=== PATIENT | female | born 1995 | race Caucasian/White ===

== ENCOUNTER 2018-09-05 22:34 | Emergency (ER) | payer MEDICAID ==
[2018-09-05 22:39] VITALS: BP 125/73
[2018-09-05] MEDS ORDERED: DIPH/PERTUSS(ACELL)/TETANUS VAC/PF 0.5 ML SYR (>=10YO) IM ONE (23:00)
--- NOTE | 2018-09-05 23:03 | ER Document Report ---
ED General - General Chief Complaint: Laceration Stated Complaint: RIGHT GREAT TOE LACERATION Time Seen by Provider: 09/05/18 22:59 Primary Care Provider: MAKENZIE BERNAL PA-C [Emergency Provider] - 09/15/18 Mode of Arrival: Ambulatory Information source: Patient TRAVEL OUTSIDE OF THE [place] IN LAST 30 DAYS: No - HPI Patient complains to provider of: right great toe laceration Onset: Just prior to arrival Onset/Duration: Sudden Quality of pain: Sharp Severity: Moderate Pain Level: 2 Associated symptoms: None Exacerbated by: Movement, Walking Relieved by: Denies Similar symptoms previously: No Recently seen / treated by doctor: No Notes: 23-year-old female with right great toe laceration. There was a piece of broken glass stuck to her left shoe she tried to take her right foot to knock it off of there and did not realize that it was glass and therefore lacerated her right great toe. Last tetanus is unknown. 32 weeks . - Related Data Allergies/Adverse Reactions: tomato Allergy (Verified 09/05/18 22:59) topiramate [From Topamax] Allergy (Verified 09/05/18 22:59) Past Medical History - General Information source: Patient - Social History Smoking Status: Never Smoker Family History: Reviewed & Not Pertinent Review of Systems - Review of Systems Notes: Constitutional: No fevers. No chills. EENT: No eye redness. No eye pain. No ear pain. No sore throat. Cardiovascular: No chest pain. No palpitations. Respiratory: No cough. No shortness of breath. No respiratory distress. Gastrointestinal: No abdominal pain. No nausea, vomiting, or diarrhea. Genitourinary: Atraumatic. No lesions. No pain. No discharge. Musculoskeletal: Positive for right great toe laceration Skin: No rash or lesions. Lymphatic: No swollen lymph nodes. Physical Exam - Vital signs Vitals: Temp Pulse Resp BP Pulse Ox 98.2 F 91 16 125/73 100 09/05/18 22:38 09/05/18 22:38 09/05/18 22:38 09/05/18 22:38 09/05/18 22:38 - Notes Notes: General: Well-developed, well-nourished. In no acute distress. Non-toxic appearing. Cardiac: Well-perfused. Regular rate and rhythm. No murmurs, rubs, or gallops. Pulmonary: No respiratory distress. No cyanosis. Bilateral lung fiels are clear to auscultation. Abdominal: Non-distended. Non-rigid. Bowels sounds are present in all four quadrants. No guarding or rebound. HEENT: Head is atraumatic. Conjunctivae not reddened. No tearing. PERRL. EOMI. Orbits atraumatic. No periorbital swelling or erythema. Oropharynx is without erythema, swelling, or exudates. Neck: Supple. No adenopathy. No meningismus. Dermatologic: Warm with good turgor. No rash. Atraumatic. Chest: Atraumatic. No chest wall tenderness to palpation. Musculoskeletal: 2 cm laceration to medial aspect of right great toe. No active bleeding. Genitourinary: Examination deferred Neurologic: No gross neurologic deficits. Psychiatric: Normal mood. Course - Re-evaluation Re-evalutation: 09/05/18 23:21 X-ray looks negative. Will suture this toe and discharge patient shortly - Vital Signs Vital signs: Temp Pulse Resp BP Pulse Ox 98.2 F 91 16 125/73 100 09/05/18 22:38 09/05/18 22:38 09/05/18 22:38 09/05/18 22:38 09/05/18 22:38 Procedures - Laceration/Wound Repair right great toe Time completed: 23:58 Wound length (cm): 2 Wound's Depth, Shape: Linear Laceration pre-procedure: Sterile PPE donned, Sterile drapes applied, Shur-Clens applied Anesthetic type: 1% Lidocaine Volume Anesthetic (mLs): 5 Wound explored: Clean, No foreign body removed - no fb seen Wound Repaired With: Sutures Suture Size/Type: 4:0, Nylon Number of Sutures: 4 Layer Closure?: No Post-procedure wound care: Sterile dressing applied Post-procedure NV exam normal: Yes Complications: No Discharge - Discharge Clinical Impression: Toe laceration Qualifiers: Encounter type: initial encounter Toe: great toe Damage to nail status: without damage Foreign body presence: without foreign body Laterality: right Qualified Code(s): S91.111A - Laceration without foreign body of right great toe without damage to nail, initial encounter Condition: Good Disposition: HOME, SELF-CARE Instructions: Antibiotic Ointment Protection ([facility]), Laceration Care ([facility]), Soap Cleansing ([facility]), Tetanus Immunization Given ([facility]) Additional Instructions: Sutures can be removed from your right great toe in 10 days. You may have these removed with your primary care provider or you may return to the emergency department to have the sutures removed. Please see your doctor or return to the ER if you notice any signs of infection at any point of the healing process. Referrals: MAKENZIE BERNAL PA-C [Emergency Provider] - 09/15/18
[2018-09-05] MEDS ORDERED: LIDOCAINE 1% INJ-PF (10 MG/ML) 30 ML SDV INJ ONE (23:18)
--- NOTE | 2018-09-05 23:25 | RADIOLOGY REPORT (SQ) ---
CLINICAL HISTORY: laceration right great toe r/o fb COMPARISON: None. TECHNIQUE: XR FOOT 3 OR MORE VIEWS 09/05/2018 10:59 PM CDT FINDINGS: There is no fracture. Joint spaces are preserved. There is soft tissue swelling involving the first digit. IMPRESSION: No acute fracture or radiopaque foreign body.
== END 2018-09-06 00:18 | disposition home or self-care (01) ==
LOC: ER 22:34
PROC: 0HQMXZZ Repair Right Foot Skin, External Approach (ICD-10-PCS; principal; 2018-09-05)
DX: O9A.213 Injury, poisoning and certain other consequences of external causes complicating pregnancy, third trimester (principal); S91.111A Laceration without foreign body of right great toe without damage to nail, initial encounter; W25.XXXA Contact with sharp glass, initial encounter; Z3A.32 32 weeks gestation of pregnancy
CPT/HCPCS: 90471; 90715; 99282

== ENCOUNTER 2018-10-14 20:31 | Outpatient (CLI) | payer MEDICAID ==
[2018-10-14 21:08] LABS: APPEARANCE,URINE CLOUDY; BILIRUBIN,URINE NEGATIVE (NEGATIVE); COLOR,URINE YELLOW; GLUCOSE, URINE NEGATIVE (NEGATIVE); KETONES,URINE NEGATIVE (NEGATIVE); LEUKOCYTE ESTERASE,URINE MODERATE (NEGATIVE); NITRITE,URINE NEGATIVE (NEGATIVE); PROTEIN,URINE NEGATIVE (NEGATIVE); URINE SPECIFIC GRAVITY 1.004; UROBILINOGEN,URINE NEGATIVE mg/dL (<2.0)
--- NOTE | 2018-10-14 21:12 | Non Stress Test Report ---
Non Stress Test Datetime Report Generated by CPN: 10/14/2018 21:12 DEMOGRAPHIC EGA NST: 37.3 INDICATION Indication for Study: Ordered by Provider MONITORING Monitor Explained: Monitor Explained; Test Explained; Patient Verbalized Understanding Time on Monitor: 10/14/2018 20:49 Time off Monitor: 10/14/2018 21:10 NST Duration: 21 NST INTERVENTIONS NST Interventions: None Physician Notified NST: Dr. Nicole BABY A: [id number] BABY A Movement : Present Contraction Frequency : x1 Accelerations : 15X15 Decelerations : None Variability : Moderate 6-25bpm NST Review: Meets Criteria for Reactive NST NST Review and Verified By : NDoyle RN NST Results: Reactive NST REPORT Report Trigger: Send Report
[2018-10-14 21:30] LABS: URINE AMPHETAMINES SCREEN NEGATIVE; URINE BENZODIAZEPINES SCREEN NEGATIVE; URINE COCAINE SCREEN NEGATIVE; URINE MARIJUANA (THC) SCREEN NEGATIVE; URINE METHADONE SCREEN NEGATIVE; URINE PHENCYCLIDINE SCREEN NEGATIVE
[2018-10-15 11:38] LABS: URINE BARBITURATES SCREEN UNCONFIRMED POSITIVE
== END 2018-10-14 21:28 | disposition home or self-care (01) ==
LOC: LC 20:31
PROVIDERS: ATTEND Obstetrics & Gynecology Gynecology
PROC: 4A1HXCZ Monitoring of Products of Conception, Cardiac Rate, External Approach (ICD-10-PCS; principal; 2018-10-14)
DX: O47.1 False labor at or after 37 completed weeks of gestation (principal); Z3A.37 37 weeks gestation of pregnancy
CPT/HCPCS: 59025; 80307; 81005

== ENCOUNTER 2018-11-04 09:37 | Inpatient (IN) | payer MEDICAID ==
[2018-11-04] MEDS ORDERED: OXYTOCIN 10 UNIT/ML VIAL ONE (10:11)
[2018-11-04] MEDS ORDERED: MISOPROSTOL 0.2 MG TABLET ONE (10:11)
[2018-11-04] MEDS ORDERED: LIDOCAINE 1% INJ-PF (10 MG/ML) 30 ML SDV ONE (10:11)
[2018-11-04] MEDS ORDERED: OXYTOCIN/NORMAL SALINE 20 UNIT/1,000 ML RTUINJ ONE (10:12)
[2018-11-04] MEDS: RINGERS SOLUTION,LACTATED 1,000 ML IV PRN ×3 (10:15→15:10)
[2018-11-04 10:26] LABS: APPEARANCE,URINE TURBID; BILIRUBIN,URINE NEGATIVE (NEGATIVE); COLOR,URINE YELLOW; GLUCOSE, URINE NEGATIVE (NEGATIVE); KETONES,URINE TRACE mg/dL (NEGATIVE); LEUKOCYTE ESTERASE,URINE MODERATE (NEGATIVE); NITRITE,URINE NEGATIVE (NEGATIVE); PROTEIN,URINE 30 mg/dL (NEGATIVE); URINE SPECIFIC GRAVITY 1.012; UROBILINOGEN,URINE NEGATIVE mg/dL (<2.0)
[2018-11-04] MEDS ORDERED: OXYTOCIN/NORMAL SALINE 20 UNIT/1,000 ML RTUINJ IV PRN ×2 (10:31→18:35)
[2018-11-04 10:45] LABS: URINE AMPHETAMINES SCREEN NEGATIVE; URINE BENZODIAZEPINES SCREEN NEGATIVE; URINE COCAINE SCREEN NEGATIVE; URINE MARIJUANA (THC) SCREEN NEGATIVE; URINE METHADONE SCREEN NEGATIVE; URINE PHENCYCLIDINE SCREEN NEGATIVE
[2018-11-04 10:52] LABS: URINE BARBITURATES SCREEN UNCONFIRMED POSITIVE
--- NOTE | 2018-11-04 11:03 | Warning Signs in Babies ---
VOD Warning Signs Datetime Report Generated by [facility]: 11/04/2018 11:03 VOD#608 -Warning Signs in Babies: Viewed with Parent(s)/Family (08/30/2018 21:12:Phil Eckert RN)
--- NOTE | 2018-11-04 11:04 | Warning Signs in Babies ---
VOD Warning Signs Datetime Report Generated by [facility]: 11/04/2018 11:04 VOD#608 -Warning Signs in Babies: Viewed with Parent(s)/Family (11/04/2018 11:02:Phil Eckert RN)
[2018-11-04 11:25] LABS: HEMATOCRIT 35.7 % (36.0-47.0); HEMOGLOBIN 11.9 g/dL (12.0-15.5); MEAN CORPUSCULAR HEMOGLOBIN 29.9 pg (27.0-33.4); MEAN CORPUSCULAR HGB CONC 33.4 g/dL (32.0-36.0); MEAN CORPUSCULAR VOLUME 89 fl (80-97); PLATELET COUNT 226 10^3/uL (150-450); WHITE BLOOD COUNT 21.1 10^3/uL (4.0-10.5)
[2018-11-04 11:45] LABS: ABSOLUTE LYMPHOCYTES# (MANUAL) 1.1 10^3/uL (0.5-4.7); ABSOLUTE MONOCYTES # (MANUAL) 1.3 10^3/uL (0.1-1.4); BASOPHILS % (MANUAL) 0 % (0-2); EOSINOPHILS % (MANUAL) 0 % (0-6); LYMPHOCYTES % (MANUAL) 5 % (13-45); MONOCYTES % (MANUAL) 6 % (3-13); SEGMENTED NEUTROPHILS % (MAN) 89 % (42-78); TOTAL CELLS COUNTED 100
[2018-11-04 11:46] LABS: ANISOCYTOSIS SLIGHT; PLATELET COMMENT ADEQUATE; POLYCHROMASIA SLIGHT; TOXIC VACUOLATION PRESENT
[2018-11-04] MEDS ORDERED: NALBUPHINE HCL INJ 10 MG/1 ML AMPULE ONE (12:30)
[2018-11-04] MEDS ORDERED: ACETAMINOPHEN 325 MG TABLET ONE (12:31)
[2018-11-04] MEDS ORDERED: ACETAMINOPHEN 325 MG TABLET PO ONE (12:37)
[2018-11-04] MEDS ORDERED: NALBUPHINE HCL INJ 10 MG/1 ML AMPULE IV ONE (12:38)
[2018-11-04] MEDS ORDERED: EPHEDRINE SULFATE INJ 50 MG/1 ML AMPULE ONE (15:03)
[2018-11-04] MEDS ORDERED: BUPIVACAINE HCL 0.25 % INJ/PF (2.5 MG/1 ML) 30 ML VIAL ONE (15:04)
[2018-11-04] MEDS ORDERED: FENTANYL/BUPIVACAINE/NS/PF 300 MCG/150 ML RTUINJ EPI ONE (15:04)
--- NOTE | 2018-11-04 18:32 | Admission Physical ---
Datetime Report Generated by CPN: 11/04/2018 18:32 CURRENT ADMISSION Chief Complaint: Uterine Contractions Admit Impression : Term, Intrauterine Admit Plan: Admit to Unit; Initiate Labor Protocol ALLERGIES Medication Allergies: Yes Medication Allergies: topiramate (10/14/2018); tomato (10/14/2018) Latex: Unknown Food Allergies: tomato OBSTETRICAL HISTORY EDC: 11/01/2018 00:00 : 1 Para: 0 Term: 0 : 0 SAB: 0 IAB: 0 Livin Gestational Diabetes: No Rh Sensitization: No Incompetent Cervix: No SANDRA: No Infertility: No ART Treatment: No Uterine Anomaly: No IUGR: No Hx Previous C/S: No Macrosomia: No Hx Loss/Stillborn: No PIH: No Hx : No Placenta Previa/Abruption: No Depression/PP Depression: No PTL/PROM: No Post Hemorrhage: No Obstetrical History Comments: G1: current SEE RECORDS Alcohol: No Marijuana : No Cocaine: No Other Illicit Drugs: No Cigarettes: Current Everyday Smoker. 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 Heart Disease: No Hosp/Surgery: No Autoimmune Disorder: No Anesthetic Complications: No Kidney Disease: No Abnormal Pap Smear: No Neuro/Epilepsy: No Psychiatric Disorders: No Other Medical Diseases: No Hepatitis/Liver Disease: No Significant Family History: No Varicosities/Phlebitis: No Trauma/Violence : No Thyroid Dysfunction: No INFECTIOUS HISTORY Gonorrhea: No Genital Herpes: No Chlamydia: Yes Tuberculosis: No Syphilis: No Hepatitis: No HIV/AIDS Exposure: No Rash or Viral Illness: No HPV: No Infectious History Comments: chlamydia-LIZBETH neg 04/22/18 PHYSICAL EXAM General: Normal HEENT: Normal Neurologic: Normal Thyroid: Normal Heart: Normal Lungs: Normal Breast: Deferred Back: Normal Abdomen: Normal Genitourinary Exam: Normal Extremities: Normal DTRs: Normal Pelvic Type: Adequate FETUS A EGA: 40.3 PLANS FOR LABOR AND DELIVERY Labor and Delivery: None Pain Management: Epidural Feeding Preference: Formula Benefit of Breast Feed Discussed: Yes Circumcision: Yes INFORMED CONSENT Signature: with User ID: [email or web address]
[2018-11-04] MEDS ORDERED: PSEUDOEPHEDRINE HCL 30 MG TABLET PO PRN (18:35)
[2018-11-04] MEDS ORDERED: PROMETHAZINE HCL 25 MG SUPP.RECT PR PRN (18:35)
[2018-11-04] MEDS ORDERED: DIBUCAINE 1% OINTMENT 56 GM TP PRN (18:35)
[2018-11-04] MEDS ORDERED: ZOLPIDEM TARTRATE 5 MG TABLET PO PRN (18:35)
[2018-11-04] MEDS ORDERED: NA PHOS,M-B/NA PHOS,DI-BA (ADULT) 133 ML ENEMA PR PRN (18:35)
[2018-11-04] MEDS ORDERED: GLYCERIN/WITCH HAZEL LEAF 1 EACH MED..WIPE TP PRN (18:35)
[2018-11-04] MEDS ORDERED: ACETAMINOPHEN 650 MG SUPP.RECT PR PRN (18:35)
[2018-11-04] MEDS ORDERED: MEASLES,MUMPS&RUBELLA VACC/PF 0.5 ML VIAL SUBCUT PRN (18:35)
[2018-11-04] MEDS ORDERED: PROMETHAZINE HCL INJ 25 MG/1 ML VIAL IV PRN (18:35)
[2018-11-04] MEDS ORDERED: PROMETHAZINE HCL 25 MG TABLET PO PRN (18:35)
[2018-11-04] MEDS ORDERED: DIPH/PERTUSS(ACELL)/TETANUS VAC/PF 0.5 ML SYR (>=10YO) IM PRN (18:35)
[2018-11-04] MEDS ORDERED: BENZOCAINE/MENTHOL AEROSOL SPRAY 56 ML TOP PRN (18:35)
[2018-11-04] MEDS ORDERED: DIPHENHYDRAMINE HCL 25 MG CAPSULE PO PRN (18:35)
[2018-11-04] MEDS ORDERED: MAGNESIUM HYDROXIDE SUSP 30 ML UDCUP PO PRN (18:35)
[2018-11-04] MEDS: ACETAMINOPHEN WITH CODEINE #3 TABLET PO PRN (20:46)
[2018-11-04] MEDS: IBUPROFEN 800 MG TABLET PO SCH (22:21)
[2018-11-04] MEDS: FAMOTIDINE 20 MG TABLET PO SCH (22:21)
[2018-11-05] MEDS: IBUPROFEN 800 MG TABLET PO SCH ×3 (05:27→21:33)
[2018-11-05 07:26] LABS: HEMATOCRIT 31.3 % (36.0-47.0); HEMOGLOBIN 10.5 g/dL (12.0-15.5); MEAN CORPUSCULAR HGB CONC 33.5 g/dL (32.0-36.0); MEAN CORPUSCULAR VOLUME 90 fl (80-97); PLATELET COUNT 196 10^3/uL (150-450); RED BLOOD COUNT 3.49 10^6/uL (3.72-5.28); RED CELL DISTRIBUTION WIDTH 13.7 % (11.5-14.0); WHITE BLOOD COUNT 21.3 10^3/uL (4.0-10.5)
[2018-11-05] MEDS: PRENATAL VITAMIN W DHA CAPSULE PO SCH (09:16)
[2018-11-05] MEDS: FAMOTIDINE 20 MG TABLET PO SCH ×2 (09:16→21:34)
[2018-11-05] MEDS: FERROUS SULFATE 325 MG TABLET PO SCH ×2 (09:16→18:24)
[2018-11-05] MEDS: SENNOSIDES/DOCUSATE 8.6-50 MG 1 EACH TABLET PO SCH (09:16)
[2018-11-05] MEDS: DOCUSATE SODIUM 100 MG CAPSULE PO SCH ×2 (09:16→18:24)
[2018-11-05] MEDS: ACETAMINOPHEN WITH CODEINE #3 TABLET PO PRN ×2 (09:27→20:45)
--- NOTE | 2018-11-05 12:48 | PDOC PROGRESS REPORT ---
Subjective-OB Progress Note for:: 11/05/18 Subjective: Pt doing well, no concerns. She reports light bleeding, reg diet and voiding without difficulty. Physical Exam (OB) Vital Signs: Temp Pulse Resp BP Pulse Ox 97.7 F 71 16 101/51 L 100 11/05/18 07:42 11/05/18 07:42 11/05/18 07:42 11/05/18 07:42 11/05/18 07:42 Intake & Output 11/04/18 11/05/18 11/06/18 06:59 06:59 06:59 Intake Total 614 Balance 614 Weight 81 kg - PIH/Pre-Eclampsia DTR's: 2 + Clonus: Negative Headache: Absent Epigastric Pain: No Visual Changes: No - Lochia Lochia Amount: Small 10-25 ml Lochia Color: Rubra/Red - Abdomen Description: Soft, Round Hernia Present: No Fundal Description: Firm, Midline Fundal Height: u/u - u/2 Objective-Diagnostic Laboratory: 11/05/18 06:33 11/05/18 06:33 WBC 21.3 H RBC 3.49 L Hgb 10.5 L Hct 31.3 L MCV 90 MCH 30.0 MCHC 33.5 RDW 13.7 Plt Count 196 Assessment and Plan(PN) - Assessment and Plan (1) Vaginal delivery Is this a current diagnosis for this admission?: Yes (2) Obstetric vaginal laceration with first degree perineal laceration Is this a current diagnosis for this admission?: Yes - Time Spent with Patient Time with patient: Less than 15 minutes Medications reviewed and adjusted accordingly: Yes - Disposition Anticipated Discharge: Home Within: within 24 hours
[2018-11-06] MEDS: ACETAMINOPHEN WITH CODEINE #3 TABLET PO PRN (03:58)
[2018-11-06 06:42] LABS: ABSOLUTE EOSINOPHILS # (AUTO) 0.2 10^3/uL (0.0-0.6); ABSOLUTE LYMPHOCYTES (AUTO) 2.1 10^3/uL (0.5-4.7); ABSOLUTE MONOCYTES (AUTO) 1.2 10^3/uL (0.1-1.4); ABSOLUTE NEUT (AUTO) 14.7 10^3/uL (1.7-8.2); BASOPHILS % (AUTO) 0.2 % (0-2); EOSINOPHILS % (AUTO) 1.3 % (0-6); HEMATOCRIT 31.2 % (36.0-47.0); HEMOGLOBIN 10.5 g/dL (12.0-15.5); LYMPHOCYTES % (AUTO) 11.3 % (13-45); MEAN CORPUSCULAR HEMOGLOBIN 30.3 pg (27.0-33.4); MEAN CORPUSCULAR HGB CONC 33.6 g/dL (32.0-36.0); MEAN CORPUSCULAR VOLUME 90 fl (80-97); MONOCYTES % (AUTO) 6.5 % (3-13); PLATELET COUNT 200 10^3/uL (150-450); RED BLOOD COUNT 3.47 10^6/uL (3.72-5.28); RED CELL DISTRIBUTION WIDTH 13.8 % (11.5-14.0); SEGMENTED NEUTROPHILS % (AUTO) 80.7 % (42-78); TOTAL CELLS COUNTED % (AUTO) 100 %; WHITE BLOOD COUNT 18.2 10^3/uL (4.0-10.5)
[2018-11-06] MEDS: IBUPROFEN 800 MG TABLET PO SCH ×2 (06:50→14:44)
[2018-11-06 07:54] VITALS: BP 123/66
--- NOTE | 2018-11-06 10:46 | PDOC DISCHARGE SUMMARY ---
Final Diagnosis Discharge Date: 11/06/18 - Final Diagnosis (1) Vaginal delivery Is this a current diagnosis for this admission?: Yes (2) Obstetric vaginal laceration with first degree perineal laceration Is this a current diagnosis for this admission?: Yes Discharge Data - Discharge Medication Home Medications: Doxylamine Succinate/Vit B6 [Diclegis Dr 10-10 mg Tablet] 1 tab PO DAILY 08/30/18 No122/Iron/Folic Acid [ Multi Tablet] 1 tab PO DAILY 08/30/18 Butalb/Acetaminophen/Caffeine [Fioricet (50-325-40 mg) Tablet] 1 tab PO DAILY 10/14/18 Reason(s) for Admission: Onset of Labor Procedures: NST Intrapartum Procedure(s): Spontaneous Vaginal Delivery Complication(s): Laceration-Perineal Laceration-Degree: 1st - Diagnosis Test Laboratory: Temp Pulse Resp BP Pulse Ox 97.8 F 59 L 18 123/66 97 11/06/18 10:16 11/06/18 10:16 11/06/18 10:16 11/06/18 07:34 11/06/18 10:16 11/04/18 11/04/18 11/05/18 09:42 10:38 06:33 RBC 4.00 3.49 L Hgb 11.9 L 10.5 L Hct 35.7 L 31.3 L Urine Opiates Screen NEGATIVE 11/06/18 06:14 RBC 3.47 L Hgb 10.5 L Hct 31.2 L Urine Opiates Screen - Discharge information/Instructions Discharge Activity: Balance Activity w/Rest, Pelvic Rest Discharge Diet: Regular Disposition: HOME, SELF-CARE Follow up with: [facility] in: 4, Weeks
[2018-11-06] MEDS: FERROUS SULFATE 325 MG TABLET PO SCH (10:50)
[2018-11-06] MEDS: SENNOSIDES/DOCUSATE 8.6-50 MG 1 EACH TABLET PO SCH (10:50)
[2018-11-06] MEDS: DOCUSATE SODIUM 100 MG CAPSULE PO SCH (10:50)
[2018-11-06] MEDS: PRENATAL VITAMIN W DHA CAPSULE PO SCH (10:50)
[2018-11-06] MEDS: FAMOTIDINE 20 MG TABLET PO SCH (10:50)
--- NOTE | 2018-11-08 15:26 | Delivery Summary ---
Del Sum A-C Datetime Report Generated by CPN: 11/08/2018 15:25 DELIVERY PERSONNEL DELIVERY PERSONNEL: [id number] Delivery Doctor:: Neel Nicole MD Labor and Delivery Nurse:: Phil Eckert RNcement block maker Nurse:: Candida Rhodes RN Nursery Nurse:: Sarah Correa RN Brush Stainer/KITCHENWHERE MAKER: Zahraa Arevalo, BREAD WRAPPER OPERATOR MATERNAL INFORMATION Delivery Anesthesia: Epidural Medications After Delivery: Pitocin Bolus-Please Comment Meds After Delivery Comment: Pitocin 20 units in 1 L NS bolusing per order Estimated Blood Loss (ml): 100 Delivery QBL: 100 Maternal Complications: None LABOR SUMMARY EDC: 11/01/2018 00:00 No. Babies in Womb: 1 Attempted: No Labor Anesthesia: Epidural LABOR INFORMATION Reason for Induction: Not Applicable Onset of Labor: 11/04/2018 14:46 Complete Dilatation: 11/04/2018 17:05 Oxytocin: Augmentation Group B Beta Strep: negative Antibiotics # of Doses: 0 Antibiotics Time of Last Dose: n/a Name of Antibiotic Given: n/a Steroids Given: None Reason Steroids Not Administered: Not Applicable MEMBRANES Membranes Rupture Method: Spontaneous Rupture of Membranes: 11/04/2018 09:00 Length of Rupture (hr): 9.33 Amniotic Fluid Color: Clear Amniotic Fluid Amount: Small Amniotic Fluid Odor: Normal STAGES OF LABOR Stage 1 hr: 2 Stage 1 min: 19 Stage 2 hr: 1 Stage 2 min: 15 Stage 3 hr: 0 Stage 3 min: 3 Total Time in Labor hr: 3 Total Time in Labor min: 37 VAGINAL DELIVERY Episiotomy: None Laceration #1: Vaginal Laceration Extension #1: First Degree Laceration Repair: Yes Laceration Repair: Yes Laceration Repair Note: 2-0 vicryl Sponge Count Correct: Yes Sharps Count Correct: Yes CSECTION DELIVERY Primary Indication: N/A Secondary Indication: N/A CSection Incidence: N/A Labor: N/A Elective: N/A CSection Incision: N/A BABY A INFORMATION Delivery Date/Time: 11/04/2018 18:20 Method of Delivery: Vaginal Born in Route : No : N/A Forceps: N/A Vacuum Extraction: Successful Shoulder Dystocia : No ASSISTED DELIVERY BABY A Indication for Assisted Delivery: poor maternal effort Catheter Prior to Procedure: Yes Station Vacuum/Forcep Apply: 3 Vacuum Number of Pulls: 1 Vacuum Number of PopOffs: 0 Vacuum Maximum Pressure Obtained: 80 Reduce Pressure btwn Ctx: Yes Vacuum [employer] Storage Architect: [place] Total Time Vacuum Applied: 1 minute PRESENTATION/POSITION BABY A Presentation: Cephalic Cephalic Presentation: Vertex Vertex Position: Right Occipital Anterior Breech Presentation: N/A PLACENTA INFORMATION BABY A Placenta Delivery Time : 11/04/2018 18:23 Placenta Method of Delivery: Spontaneous Placenta Method of Delivery: Spontaneous Placenta Status: Delivered INFANT INFORMATION BABY A Gestational Age at Delivery: 40.3 Gestational Status: Full Term- 39- 40.6 Weeks Infant Outcome : Liveborn Infant Condition : Stable Sex: Male IDENTIFICATION BABY A Verification Date/Time: 11/04/2018 19:00 ID Band Number: [id number] Mother's Name Verified: Yes RN Verifying Infant: Calos Person RN, Felisa Eckert RN CORD INFORMATION BABY A No. Cord Vessels: 3 Nuchal Cord : Around Neck x1, Loose Cord Blood Taken: Yes-For Eval (Mom's Blood Type - or O+) ASSESSMENT BABY A Complications: None Physical Findings at Delivery: Within Normal Limits Respirations: Appears Normal Skin to Skin: Yes Hot Press Operator/ALS Called : No Care By: Ramón Correa RN Transferred To: Remains with Mother BABY B INFORMATION : N/A SIGNATURES Signature: with User ID: [email or web address]
== END 2018-11-06 15:36 | disposition home or self-care (01) | DRG 807 ==
LOC: LC 09:37 → LR 09:50 → 2S 20:21
PROVIDERS: ADMIT Obstetrics & Gynecology Gynecology; ATTEND Obstetrics & Gynecology Gynecology
PROC: 10D07Z6 Extraction of Products of Conception, Vacuum, Via Natural or Artificial Opening (ICD-10-PCS; principal; 2018-11-04)
PROC: 0HQ9XZZ Repair Perineum Skin, External Approach (ICD-10-PCS; 2018-11-04)
DX: O75.81 Maternal exhaustion complicating labor and delivery (principal); Z37.0 Single live birth; O99.334 Smoking (tobacco) complicating childbirth; O70.0 First degree perineal laceration during delivery; O69.81X0 Labor and delivery complicated by cord around neck, without compression, not applicable or unspecified; F17.210 Nicotine dependence, cigarettes, uncomplicated; Z86.19 Personal history of other infectious and parasitic diseases; Z3A.40 40 weeks gestation of pregnancy
CPT/HCPCS: 36415; 80307; 81005; 85025; 85027; 86592; 86850; 86900; 86901; 87070; 87077; 87205; 88307; 94760; J2300; J2590; J3010; J3490

== ENCOUNTER → 2020-01-03 | Outpatient (CLI) | payer OTHER, MEDICAID ==
--- NOTE | 2020-01-03 14:10 | WOMENS IMAGING REPORT ---
EXAM DESCRIPTION: U/S BREAST UNILAT LIMITED IMAGES COMPLETED DATE/TIME: 01/03/2020 2:00 pm REASON FOR STUDY: N63.0 PALP N63.0 UNSPECIFIED LUMP IN UNSPECIFIED BREAST COMPARISON: None. TECHNIQUE: Real-time and static grayscale imaging performed of the right axilla targeted to the area of clinical/mammographic concern. Selected color Doppler images recorded. LIMITATIONS: None. FINDINGS: MASS: No mass identified. Benign-appearing lymph node with thin cortex and fatty hilum. OTHER: No other significant finding. IMPRESSION: Benign-appearing lymph node. No suspicious findings detected by ultrasound. BIRAD: 1 Negative. RECOMMENDATION: RECOMMENDED FOLLOW-UP: Follow-up as clinically indicated. COMMENT: The [employer] (ACR) has developed recommendations for screening MRI of the breasts in certain patient populations, to be used in conjunction with mammography. Breast MRI s urveillance may be appropriate for women with more than 20% lifetime risk of developing breast cancer as determined by genetic testing, significant family history of the disease, or history of mantle r adiation for Hodgkins Disease. ACR Practice Guidelines 2008. TECHNICAL DOCUMENTATION: JOB ID: [id number] 2010 [employer]- All Rights Reserved Reading location - IP/workstation name: [email or web address]
--- NOTE | 2020-01-03 14:11 | WOMENS IMAGING REPORT ---
EXAM DESCRIPTION: U/S BREAST UNILAT LIMITED IMAGES COMPLETED DATE/TIME: 01/03/2020 1:59 pm REASON FOR STUDY: N63.0 UNSPECIFIED LUMP IN UNSPECIFIED BREAST N63.0 UNSPECIFIED LUMP IN UNSPECIFIE D BREAST COMPARISON: None. TECHNIQUE: Real-time and static grayscale imaging performed of the left axilla targeted to the area of clinical/mammographic concern. Selected color Doppler images recorded. LIMITATIONS: None. FINDINGS: MASS: No mass identified. There are benign-appearing lymph nodes with thin cortex and fat ty migdalia. OTHER: No other significant finding. IMPRESSION: Benign-appearing lymph nodes. No suspicious findings detected by ultrasound. BIRAD: 1 Negative. RECOMMENDATION: RECOMMENDED FOLLOW-UP: Follow-up as clinically indicated. COMMENT: The [employer] (ACR) has developed recommendations for screening MRI of the breasts in certain patient populations, to be used in conjunction with mammography. Breast MRI s urveillance may be appropriate for women with more than 20% lifetime risk of developing breast cancer as determined by genetic testing, significant family history of the disease, or history of mantle r adiation for Hodgkins Disease. ACR Practice Guidelines 2008. TECHNICAL DOCUMENTATION: JOB ID: [id number] 2010 [facility]- All Rights Reserved Reading location - IP/workstation name: [email or web address]
== END ==
LOC: WI 13:32
PROVIDERS: ATTEND Obstetrics & Gynecology Gynecology
DX: N63.10 Unspecified lump in the right breast, unspecified quadrant (principal)
CPT/HCPCS: 76642

== ENCOUNTER 2020-04-11 16:31 | Outpatient (CLI) | payer OTHER, MEDICAID ==
--- NOTE | 2020-04-11 18:12 | Non Stress Test Report ---
Non Stress Test Datetime Report Generated by CPN: 04/11/2020 18:12 DEMOGRAPHIC EGA NST: 39.2 INDICATION Indication for Study (NST) Other: false labor VITAL SIGNS Temperature - NST: 97.5 Pulse - NST: 98 RESP - NST: 17 RESP - NST: 17 NBPSYS NST: 117 NBPSYS NST: 117 NBPDIA NST: 78 NBPDIA NST: 78 MONITORING Monitor Explained: Monitor Explained; Test Explained; Patient Verbalized Understanding Time on Monitor: 04/11/2020 17:00 Time off Monitor: 04/11/2020 17:57 NST Duration: 57 NST INTERVENTIONS NST Interventions: PO Hydration; Reposition Patient Physician Notified NST: Dr. Nicole BABY A: [id number] BABY A Movement : Present Contraction Frequency : occasional, irregular FHR Baseline : 145 Accelerations : 15X15 Decelerations : None Variability : Moderate 6-25bpm NST Review: Meets Criteria for Reactive NST NST Review and Verified By : SAutry NST Results: Reactive NST REPORT Report Trigger: Send Report
[2020-04-11 18:25] LABS: BILIRUBIN,URINE NEGATIVE (NEGATIVE); COLOR,URINE YELLOW; GLUCOSE, URINE 50 mg/dL (NEGATIVE); KETONES,URINE TRACE mg/dL (NEGATIVE); LEUKOCYTE ESTERASE,URINE TRACE (NEGATIVE); NITRITE,URINE NEGATIVE (NEGATIVE); PROTEIN,URINE NEGATIVE (NEGATIVE); URINE SPECIFIC GRAVITY 1.015; UROBILINOGEN,URINE NEGATIVE mg/dL (<2.0)
[2020-04-11 18:32] LABS: APPEARANCE,URINE SLIGHTLY-CLOUDY
[2020-04-11 18:44] LABS: URINE AMPHETAMINES SCREEN NEGATIVE; URINE BENZODIAZEPINES SCREEN NEGATIVE; URINE COCAINE SCREEN NEGATIVE; URINE MARIJUANA (THC) SCREEN NEGATIVE; URINE METHADONE SCREEN NEGATIVE; URINE PHENCYCLIDINE SCREEN NEGATIVE
[2020-04-11 18:52] LABS: URINE BARBITURATES SCREEN UNCONFIRMED POSITIVE
== END 2020-04-11 18:02 | disposition home or self-care (01) ==
LOC: LC 16:31
PROVIDERS: ATTEND Obstetrics & Gynecology Gynecology
DX: O47.1 False labor at or after 37 completed weeks of gestation (principal); Z3A.39 39 weeks gestation of pregnancy; Z88.8 Allergy status to other drugs, medicaments and biological substances
CPT/HCPCS: 59025; 80307; 81005

== ENCOUNTER 2020-04-12 06:09 | Inpatient (IN) | payer OTHER, MEDICAID ==
[2020-04-12] MEDS ORDERED: RINGERS SOLUTION,LACTATED 1,000 ML IV PRN (06:34)
[2020-04-12] MEDS ORDERED: RINGERS SOLUTION,LACTATED 1,000 ML IV ONE (06:34)
[2020-04-12] MEDS ORDERED: OXYTOCIN 10 UNIT/ML VIAL ONE (07:05)
[2020-04-12] MEDS ORDERED: MISOPROSTOL 0.2 MG TABLET ONE (07:05)
[2020-04-12] MEDS ORDERED: OXYTOCIN/0.9 % SODIUM CHLORIDE 30 UNIT/500 ML RTUINJ ONE (07:06)
[2020-04-12] MEDS ORDERED: LIDOCAINE 1% INJ-PF (10 MG/ML) 30 ML SDV ONE (07:06)
[2020-04-12] MEDS ORDERED: MAG HYDROX/AL HYDROX/SIMETH SUSP 30 ML UDCUP ONE (07:14)
[2020-04-12] MEDS ORDERED: MAG HYDROX/AL HYDROX/SIMETH SUSP 30 ML UDCUP PO ONE (07:15)
[2020-04-12 08:01] LABS: HEMATOCRIT 33.7 % (36.0-47.0); HEMOGLOBIN 11.8 g/dL (12.0-15.5); MEAN CORPUSCULAR HEMOGLOBIN 30.3 pg (27.0-33.4); MEAN CORPUSCULAR HGB CONC 35.1 g/dL (32.0-36.0); MEAN CORPUSCULAR VOLUME 86 fl (80-97); PLATELET COUNT 174 10^3/uL (150-450); RED CELL DISTRIBUTION WIDTH 13.5 % (11.5-14.0); WHITE BLOOD COUNT 7.5 10^3/uL (4.0-10.5)
[2020-04-12] MEDS ORDERED: EPHEDRINE SULFATE INJ 50 MG/1 ML AMPULE ONE (08:20)
[2020-04-12] MEDS ORDERED: FENTANYL/BUPIVACAINE/NS/PF 300 MCG/150 ML RTUINJ EPI ONE (08:20)
[2020-04-12] MEDS ORDERED: ROPIVACAINE HCL 0.2% INJ/PF (2 MG/ML) 20 ML SDV ONE (08:21)
[2020-04-12 08:24] LABS: APPEARANCE,URINE CLOUDY; BILIRUBIN,URINE NEGATIVE (NEGATIVE); COLOR,URINE YELLOW; GLUCOSE, URINE NEGATIVE (NEGATIVE); KETONES,URINE TRACE mg/dL (NEGATIVE); LEUKOCYTE ESTERASE,URINE TRACE (NEGATIVE); NITRITE,URINE NEGATIVE (NEGATIVE); PROTEIN,URINE NEGATIVE (NEGATIVE); URINE SPECIFIC GRAVITY 1.013; UROBILINOGEN,URINE NEGATIVE mg/dL (<2.0)
[2020-04-12 08:39] LABS: URINE AMPHETAMINES SCREEN NEGATIVE; URINE BENZODIAZEPINES SCREEN NEGATIVE; URINE COCAINE SCREEN NEGATIVE; URINE MARIJUANA (THC) SCREEN NEGATIVE; URINE METHADONE SCREEN NEGATIVE; URINE PHENCYCLIDINE SCREEN NEGATIVE
[2020-04-12 08:52] LABS: URINE BARBITURATES SCREEN UNCONFIRMED POSITIVE
--- NOTE | 2020-04-12 09:15 | Admission Physical ---
Datetime Report Generated by CPN: 04/12/2020 09:15 CURRENT ADMISSION Chief Complaint: Uterine Contractions Indication for Induction: Not Applicable Admit Impression : Active Labor Admit Plan: Admit to Unit; Initiate Labor Protocol ALLERGIES Medication Allergies: Yes Medication Allergies: topiramate (04/12/2020); tomato (04/12/2020) Latex: No Latex Allergies OBSTETRICAL HISTORY EDC: 04/16/2020 00:00 : 2 Para: 1 Term: 1 : 0 SAB: 0 IAB: 0 Ectopic: 0 Livin Cesareans: 0 VBACs: 0 Multiple Births: 0 Gestational Diabetes: No Rh Sensitization: No Incompetent Cervix: No SANDRA: No Infertility: No ART Treatment: No Uterine Anomaly: No IUGR: No Hx Previous C/S: No Macrosomia: No Hx Loss/Stillborn: No PIH: No Hx : No Placenta Previa/Abruption: No Depression/PP Depression: No PTL/PROM: No Post Hemorrhage: No Current Procedures: Ultrasound; NST Obstetrical History Comments: G1- at 40.3 vacuum for bradycardia SEE RECORDS Alcohol: No Marijuana : No Cocaine: No Other Illicit Drugs: No Cigarettes: Never Smoker. [id number] (Annotations: Data stored by [facility] on behalf of user) Cigarette Frequency: > 10 per day Advised to Stop: Yes MEDICAL HISTORY Diabetes: No Blood Transfusion: No Pulmonary Disease (Asthma, TB): No Breast Disease: No Hypertension: No Ultrasound Spec Surgery: No Heart Disease: No Hosp/Surgery: No Autoimmune Disorder: No Anesthetic Complications: No Kidney Disease: No Abnormal Pap Smear: No Neuro/Epilepsy: No Psychiatric Disorders: No Other Medical Diseases: No Hepatitis/Liver Disease: No Significant Family History: No Varicosities/Phlebitis: No Trauma/Violence : No Thyroid Dysfunction: Yes Medical History Comments: Hypothyroid INFECTIOUS HISTORY Gonorrhea: No Genital Herpes: No Chlamydia: No Tuberculosis: No Syphilis: No Hepatitis: No HIV/AIDS Exposure: No Rash or Viral Illness: No HPV: No PHYSICAL EXAM General: Normal HEENT: Normal Neurologic: Normal Thyroid: Deferred Heart: Normal Lungs: Normal Breast: Deferred Back: Normal Abdomen: Normal Genitourinary Exam: Normal Extremities: Normal DTRs: Deferred Pelvic Type: Adequate Physical Exam Comments: pelvis proven to 7lb Vital Signs: Reviewed; Within Normal Limits VAGINAL EXAM Dilatation: 6 Effacement: 10 Station: -2 Contraction Comments: Q2-3 mins MEMBRANES Pooling: Negative Membranes: Bulging FETUS A EGA: 39.3 Monitoring: External US FHR- Baseline: 125 Variability: Moderate 6-25bpm Accelerations: 15X15 Decelerations: None Estimated Weight (gm): 3300 Presentation: Vertex Admit Comment: admitted for active labor at term. hx asthma as a child. GBS neg. P: routine labor care, anticipate PLANS FOR LABOR AND DELIVERY Labor and Delivery: None Pain Management: Epidural Feeding Preference: Formula Benefit of Breast Feed Discussed: Yes INFORMED CONSENT Assignment: Rohan Calix MD Signature: with User ID: [email or web address] : with User ID: [email or web address]
[2020-04-12] MEDS ORDERED: CITRIC ACID/SODIUM CITRATE ORAL SOLN 15 ML UDCUP ONE (10:32)
--- NOTE | 2020-04-12 11:28 | Warning Signs in Babies ---
VOD Warning Signs Datetime Report Generated by [facility]: 04/12/2020 11:27 VOD#608 -Warning Signs in Babies: Needs to be viewed. (04/11/2020 16:50:Margaret Gustafson RN)
[2020-04-12] MEDS ORDERED: MEASLES,MUMPS&RUBELLA VACC/PF 0.5 ML VIAL SUBCUT PRN (11:42)
[2020-04-12] MEDS ORDERED: ACETAMINOPHEN 325 MG TABLET PO PRN (11:42)
[2020-04-12] MEDS ORDERED: DIPH/PERTUSS(ACELL)/TETANUS VAC/PF 0.5 ML SYR (>=10YO) IM PRN (11:42)
[2020-04-12] MEDS ORDERED: PSEUDOEPHEDRINE HCL 30 MG TABLET PO PRN (11:42)
[2020-04-12] MEDS ORDERED: BENZOCAINE/MENTHOL AEROSOL SPRAY 56 ML TOP PRN (11:42)
[2020-04-12] MEDS ORDERED: ZOLPIDEM TARTRATE 5 MG TABLET PO PRN (11:42)
[2020-04-12] MEDS ORDERED: ACETAMINOPHEN WITH CODEINE #3 TABLET PO PRN (11:42)
[2020-04-12] MEDS ORDERED: DIBUCAINE 1% OINTMENT 28 GM TP PRN (11:42)
[2020-04-12] MEDS ORDERED: PROMETHAZINE HCL 25 MG TABLET PO PRN (11:42)
[2020-04-12] MEDS ORDERED: DIPHENHYDRAMINE HCL 25 MG CAPSULE PO PRN (11:42)
[2020-04-12] MEDS ORDERED: MAGNESIUM HYDROXIDE SUSP 30 ML UDCUP PO PRN (11:42)
[2020-04-12] MEDS ORDERED: NA PHOS,M-B/NA PHOS,DI-BA (ADULT) 133 ML ENEMA PR PRN (11:42)
[2020-04-12] MEDS ORDERED: PROMETHAZINE HCL INJ 25 MG/1 ML VIAL IV PRN (11:42)
[2020-04-12] MEDS ORDERED: OXYTOCIN/0.9 % SODIUM CHLORIDE 30 UNIT/500 ML RTUINJ IV PRN (11:42)
[2020-04-12] MEDS ORDERED: PROMETHAZINE HCL 25 MG SUPP.RECT PR PRN (11:42)
[2020-04-12] MEDS: IBUPROFEN 800 MG TABLET PO SCH ×3 (14:46→22:18)
--- NOTE | 2020-04-12 17:52 | Birth Certificate Data ---
Cert Data Datetime Report Generated by CPN: 04/12/2020 17:52 CERTIFICATE DATA Delivery Provider: Symone Pineda CNM (04/11/2020 16:50:Margaret Gustafson RN) 47a. Care: Yes (04/11/2020 16:50:Zahraa Fair RN) 47b. Date of First Visit: 10/10/2019 00:00 (04/11/2020 16:50:Margaret Gustafson RN) 47c. Date of Last Visit: 04/10/2020 00:00 (04/11/2020 16:50:Margaret Gustafson RN) 47d. Number of Visits: 11 (04/11/2020 16:50:Margaret Gustafson RN) 48a. Number of Prev Live Births: 1 (04/11/2020 16:50:Zahraa Fair RN) 48b. Now Livin (04/11/2020 16:50:Isabelle Palacio RN) 48c. Live Births Now : 0 (04/11/2020 16:50:QS system process) 48e. Losses: 0 (04/11/2020 16:50:Zahraa Fair RN) RISK FACTORS IN THIS 49a. Diabetes: No (04/11/2020 16:50:Zahraa Fair RN) 49b. Hypertension: No (04/11/2020 16:50:Zahraa Fair RN) 49c. Previous Births: 0 (04/11/2020 16:50:Isabelle Palacio RN) 49d. Stillborns: No (04/11/2020 16:50:Zahraa Fair RN) 49d. IUGR: No (04/11/2020 16:50:Zahraa Fair RN) 49e. Infertility Treatment: No (04/11/2020 16:50:Zahraa Fair RN) 49f. Previous Cesareans: 0 (04/11/2020 16:50:Zahraa Fair RN) Mother's Height 50b. Height Inches: 62 (04/12/2020 14:28:QS system process) Mother's Weight 51b. Weight at Delivery (lbs): 176 (04/12/2020 14:28:QS system process) Infections Present/Treated 53a. Gonorrhea: No (04/11/2020 16:50:Zahraa Fair RN) Results this Hospital Visit : Negative (04/11/2020 16:50:Isabelle Palacio RN) 53b. Syphilis: No (04/11/2020 16:50:Zahraa Fair RN) Results this Hospital Visit: NONREACTIVE (04/12/2020 07:28:QS system process) 53c. Chlamydia: No (04/11/2020 16:50:Zahraa Fair RN) Results this Hospital Visit: Negative (04/11/2020 16:50:Isabelle Palacio RN) 53d. Hepatitis B: No (04/11/2020 16:50:Zahraa Fair RN) Results this Hospital Visit: Negative (04/11/2020 16:50:Isabelle Palacio RN) 53e. Hepatitis C: Negative (04/11/2020 16:50:Margaret Gustafson RN) 53h. Mother Tested for HBsAG: Yes (04/11/2020 16:50:Margaret Gustafson RN) 53i. Date Tested: 10/10/2019 00:00 (04/11/2020 16:50:Margaret Gustafson RN) 53j. Test Result: Negative (04/11/2020 16:50:Isabelle Palacio RN) Obstetric Procedures 54a, b, c. Obstetric Procedures: Ultrasound; NST (04/11/2020 16:50:Margaret Gustafson RN) Cigarette Smoking Cigarette Smoking: Never Smoker. [id number] (Annotations: Data stored by Yury on behalf of user) (04/11/2020 16:50:Zahraa Fair RN) 55a. Packs: 1 (04/11/2020 16:50:Zahraa Fair RN) 55b. Packs: 1 (04/11/2020 16:50:Zahraa Fair RN) 55c. Packs: 1 (04/11/2020 16:50:Zahraa Fair RN) 55d. Packs: 1 (04/11/2020 16:50:Zahraa Fair RN) Onset of Labor 56a. PROM >12 Hrs: 2.00 (04/11/2020 16:50:QS system process) 56b. Precipitous Labor <3 Hrs: 4 (04/11/2020 16:50:QS system process) 56c. Prolonged Labor > 20 Hrs: 4 (04/11/2020 16:50:QS system process) 57a. Induction of Labor: N/A (04/11/2020 16:50:Margaret Gustafson RN) 57c. Non-Vertex Presentation A: Vertex (04/11/2020 16:50:Margaret Gustafson RN) 57d. Steroids - Lung Mat: None (04/11/2020 16:50:Margaret Gustafson RN) 57d. Steroids - Lung Mat: Not Applicable (04/11/2020 16:50:Margaret Gustafson RN) 57g. Moderate/Heavy Meconium: Clear (04/12/2020 09:16:Margaret Gustafson RN) 57h. Intolerance of Labor: N/A (04/11/2020 16:50:Margaret Gustafson RN) 57i. Epidural/Spinal Anesthesia: Epidural (04/11/2020 16:50:Margaret Gustafson RN) Method of Delivery 58a. Forceps - Unsuccessful A: N/A (04/11/2020 16:50:Margaret Gustafson RN) 58b. Vacuum - Unsuccessful A: N/A (04/11/2020 16:50:Margaret Gustafson RN) 58c. Presentation at 58c. Presentation at - A : Vertex (04/11/2020 16:50:Margaret Gustafson RN) 58c. Presentation at - A : N/A (04/11/2020 16:50:Margaret Gustafson RN) 58c. Presentation at - A : Cephalic (04/12/2020 06:26:Zahraa Fair RN) Final Route and Method of Del 58d. Baby A Route/Delivery: Vaginal (04/12/2020 11:16:Margaret Gustafson RN) 58e. Trial of Labor Attempted: No (04/11/2020 16:50:Margaret Gustafson RN) 58e. Trial of Labor Attempted A: N/A (04/11/2020 16:50:Margaret Gustafson RN) 58e. Trial of Labor Attempted B: N/A (04/11/2020 16:50:Margaret Gustafson RN) Maternal Morbidity 59b. 3rd or 4th Degree Lacs: Perineal (04/11/2020 16:50:Margaret Gustafson RN) 61. GA at Delivery Baby A: 39.3 (04/11/2020 16:50:Margaret Gustafson RN) : Full Term- 39- 40.6 Weeks (04/11/2020 16:50:QS system process) 62a. 5 Minute Baby A: 9 (04/11/2020 16:50:QS system process)
--- NOTE | 2020-04-12 17:52 | Delivery Summary ---
Del Sum A-C Datetime Report Generated by CPN: 04/12/2020 17:52 DELIVERY PERSONNEL DELIVERY PERSONNEL: [id number] Delivery Doctor:: Symone Pineda CNM Labor and Delivery Nurse:: Margaret Gustafson RN Nursery Nurse:: Jenn Castano RN Nursery Nurse:: Paloma Mancera RN Beet Flumer/NURSE ADVOCATE: Italia Rivas, [employer] STRAIGHTENER Additional Personnel: : Laura Gaitan, Student RN MATERNAL INFORMATION Delivery Anesthesia: Epidural Medications After Delivery: Pitocin 30 Units in 500ml NS/D5W Delivery QBL: 150 Maternal Complications: None Provider Comments: [place] VIABLE MALE WITH SPONTANEOUS CRY. NUCHAL CORD-BABY DELIVERED THROUGH. RIGHT NUCHAL (POSTERIOR) HAND DELIVERED BEFORE ANTERIOR SHOULDER. SPONTANEOUS INTACT PLACENTA WITH 3VC. SMALL FIRST DEGREE LACERATION REPAIRED UNDER EPIDURAL ANESTHESIA. MOTHER AND INFANT STABLE IN L_D #5. LABOR SUMMARY EDC: 04/16/2020 00:00 No. Babies in Womb: 1 Attempted: No Labor Anesthesia: Epidural LABOR INFORMATION Reason for Induction: Not Applicable Onset of Labor: 04/12/2020 06:26 Complete Dilatation: 04/12/2020 11:06 Oxytocin: N/A Group B Beta Strep: Negative Antibiotics # of Doses: 0 Name of Antibiotic Given: N/A Steroids Given: None Reason Steroids Not Administered: Not Applicable MEMBRANES Membranes Rupture Method: Artificial Rupture of Membranes: 04/12/2020 09:16 Length of Rupture (hr): 2.00 Amniotic Fluid Color: Clear Amniotic Fluid Amount: Large Amniotic Fluid Odor: None STAGES OF LABOR Stage 1 hr: 4 Stage 1 min: 40 Stage 2 hr: 0 Stage 2 min: 10 Stage 3 hr: 0 Stage 3 min: 5 Total Time in Labor hr: 4 Total Time in Labor min: 55 VAGINAL DELIVERY Episiotomy: None Laceration #1: Perineal Laceration Extension #1: First Degree Laceration Repair: Yes Sponge Count Correct: N/A Sharps Count Correct: N/A CSECTION DELIVERY Primary Indication: N/A CSection Incidence: N/A Labor: N/A Elective: N/A CSection Incision: N/A BABY A INFORMATION Delivery Date/Time: 04/12/2020 11:16 Method of Delivery: Vaginal Nurse Controlled Delivery: No Born in Route : No : N/A Forceps: N/A Vacuum Extraction: N/A Shoulder Dystocia : No PRESENTATION/POSITION BABY A Presentation: Cephalic Cephalic Presentation: Vertex Vertex Position: Right Occipital Anterior Breech Presentation: N/A PLACENTA INFORMATION BABY A Placenta Delivery Time : 04/12/2020 11:21 Placenta Method of Delivery: Spontaneous Placenta Status: Delivered SCORES BABY A Heart Rate 1 min: >100 bpm Resp Effort 1 min: Good Cry Reflex Irritability 1 min: Cough or Sneeze or Pulls Away Muscle Tone 1 min: Active Motion Color 1 min: Body [place], Extremities Blue Resuscitation Effort 1 min: Tactile Stimulation SCORE 1 MIN: 9 Heart Rate 5 min: >100 bpm Resp Effort 5 min: Good Cry Reflex Irritability 5 min: Cough or Sneeze or Pulls Away Muscle Tone 5 min: Active Motion Color 5 min: Body [place], Extremities Blue Resuscitation Effort 5 min: Tactile Stimulation SCORE 5 MIN: 9 INFORMATION BABY A Gestational Age at Delivery: 39.3 Gestational Status: Full Term- 39- 40.6 Weeks Outcome : Liveborn Infant Condition : Stable Infant Sex: Male IDENTIFICATION BABY A Infant Verification Date/Time: 04/12/2020 11:26 ID Band Number: [id number] Mother's Name Verified: Yes Infant RN Verifying : BARBARA Casas Additional Verifying Personnel: Tigre [employer] STRAIGHTENER CORD INFORMATION BABY A No. Cord Vessels: 3 Nuchal Cord : Around Neck x1, Loose Nuchal Cord- Other: Right Nuchal Hand Posterior Cord Blood Taken: Yes-For Eval (Mom's Blood Type - or O+) Infant Suction: Mouth; Nose ASSESSMENT BABY A Complications: None Physical Findings at Delivery: Within Normal Limits Respirations: Appears Normal Skin to Skin: Yes Infant Care By: Des Mancera RN Transferred To: Remains with Mother BABY B INFORMATION : N/A SIGNATURES Assignment: Rohan Calix MD Signature: with User ID: [email or web address] : with User ID: [email or web address] : I was personally available for consultation and serving as supervising physician for the MLP.
[2020-04-12] MEDS: DOCUSATE SODIUM 100 MG CAPSULE PO SCH (18:29)
[2020-04-12] MEDS: FERROUS SULFATE 325 MG TABLET PO SCH (18:29)
[2020-04-12] MEDS: ACETAMINOPHEN WITH CODEINE #3 TABLET PO PRN (18:36)
[2020-04-12] MEDS: FAMOTIDINE 20 MG TABLET PO SCH (22:19)
[2020-04-13 06:58] LABS: HEMOGLOBIN 12.3 g/dL (12.0-15.5); MEAN CORPUSCULAR HEMOGLOBIN 29.2 pg (27.0-33.4); MEAN CORPUSCULAR HGB CONC 33.3 g/dL (32.0-36.0); MEAN CORPUSCULAR VOLUME 88 fl (80-97); PLATELET COUNT 165 10^3/uL (150-450); RED BLOOD COUNT 4.22 10^6/uL (3.72-5.28); RED CELL DISTRIBUTION WIDTH 13.9 % (11.5-14.0); WHITE BLOOD COUNT 9.7 10^3/uL (4.0-10.5)
[2020-04-13] MEDS: IBUPROFEN 800 MG TABLET PO SCH ×3 (07:05→21:06)
[2020-04-13] MEDS: LEVOTHYROXINE SODIUM 0.075 MG TABLET PO SCH (07:08)
[2020-04-13] MEDS: PRENATAL VITAMIN W DHA CAPSULE PO SCH (09:05)
[2020-04-13] MEDS: SENNOSIDES/DOCUSATE 8.6-50 MG 1 EACH TABLET PO SCH (09:05)
[2020-04-13] MEDS: FAMOTIDINE 20 MG TABLET PO SCH ×2 (09:05→21:06)
[2020-04-13] MEDS: FERROUS SULFATE 325 MG TABLET PO SCH ×2 (09:05→17:03)
[2020-04-13] MEDS: DOCUSATE SODIUM 100 MG CAPSULE PO SCH ×2 (09:05→17:03)
[2020-04-13] MEDS ORDERED: LEVOTHYROXINE SODIUM 75 MCG PO SCH (10:00)
--- NOTE | 2020-04-13 10:23 | PDOC PROGRESS REPORT ---
Subjective-OB Progress Note for:: 04/13/20 - PP Day #1, doing well, O negative, Baby is A+, needs Rhogam, bottlefeeding Physical Exam (OB) Vital Signs: Temp Pulse Resp BP Pulse Ox 97.6 F 66 17 114/72 100 04/13/20 07:30 04/13/20 07:00 04/13/20 07:00 04/13/20 07:00 04/13/20 07:00 Intake & Output 04/12/20 04/13/20 04/14/20 06:59 06:59 06:59 Intake Total 700 Output Total 902 Balance -202 Weight 79.6 kg - General General Appearance: Appears well, Alert In distress: None - PIH/Pre-Eclampsia DTR's: 1 + Clonus: Negative Headache: Absent Epigastric Pain: No Visual Changes: No - Maternal Morbidity 59. Maternal Morbidity (serious complications experinced by the mother associated with labor and delivery: None of the above - Lochia Lochia Amount: Scant < 10 ml Lochia Color: Rubra/Red - Abdomen Description: Soft Hernia Present: No Fundal Description: Firm, Midline Fundal Height: u/u - u/2 - Respiratory Respiratory Status: No respiratory distress - Abdominal Distension: No distension Tenderness: Nontender - Genitourinary Genitourinary Note: voiding - Extremities Upper extremity: Normal inspection Lower extremities: Normal inspection - Neurological Cognition: Normal Orientation: AAOx4 - Psychological Associated symptoms: Normal affect, Normal mood - Skin Skin Temperature: Warm Skin Moisture: Dry Objective-Diagnostic Laboratory: 04/13/20 06:42 04/13/20 04/13/20 06:42 06:42 WBC 9.7 RBC 4.22 Hgb 12.3 Hct 37.0 MCV 88 MCH 29.2 MCHC 33.3 RDW 13.9 Plt Count 165 Blood Type O NEGATIVE Assessment and Plan(PN) - Assessment and Plan (1) Spontaneous onset of labor Is this a current diagnosis for this admission?: Yes (2) Obstetric vaginal laceration with first degree perineal laceration Is this a current diagnosis for this admission?: Yes (3) Vaginal delivery Is this a current diagnosis for this admission?: Yes Plan:: routine PP orders, ambulation encouraged - Time Spent with Patient Time with patient: Less than 15 minutes Medications reviewed and adjusted accordingly: Yes - Disposition Anticipated Discharge Disposition: Home, Self Care Anticipated Discharge Timeframe: within 24 hours
[2020-04-13] MEDS: ONDANSETRON 4 MG TAB.RAPDIS PO PRN ×2 (12:25→20:23)
[2020-04-14] MEDS: LEVOTHYROXINE SODIUM 0.075 MG TABLET PO SCH (05:20)
[2020-04-14] MEDS: IBUPROFEN 800 MG TABLET PO SCH ×2 (05:20→14:06)
[2020-04-14] MEDS: ACETAMINOPHEN WITH CODEINE #3 TABLET PO PRN (06:47)
[2020-04-14] MEDS: FAMOTIDINE 20 MG TABLET PO SCH (09:35)
[2020-04-14] MEDS: SENNOSIDES/DOCUSATE 8.6-50 MG 1 EACH TABLET PO SCH (09:35)
[2020-04-14] MEDS: FERROUS SULFATE 325 MG TABLET PO SCH (09:35)
[2020-04-14] MEDS: DOCUSATE SODIUM 100 MG CAPSULE PO SCH (09:35)
[2020-04-14] MEDS: PRENATAL VITAMIN W DHA CAPSULE PO SCH (09:35)
--- NOTE | 2020-04-14 10:52 | PDOC DISCHARGE SUMMARY ---
Impression - Admit/DC Date/PCP Admission Date/Primary Care Provider: 04/12/20 06:32 LOIS GIRON MD Discharge Date: 04/14/20 - PP day #2, doing well O neg, Rhogam given, bottlefeeding, Hx hypothyroidism. - Discharge Diagnosis (1) Spontaneous onset of labor Is this a current diagnosis for this admission?: Yes (2) Obstetric vaginal laceration with first degree perineal laceration Is this a current diagnosis for this admission?: Yes (3) Vaginal delivery Is this a current diagnosis for this admission?: Yes - Additional Information Resuscitation Status: Full Code Discharge Diet: As Tolerated, Regular Discharge Activity: Activity As Tolerated, No Lifting Over 10 Pounds, Pelvic Rest Referrals: LOIS GIRON MD [Primary Care Provider] - Prescriptions: Glycerin/[place] [Tucks Take-Alongs Wipe] 1 each TP DAILYP PRN #60 med..pad PRN Reason: Home Medications: No122/Iron/Folic Acid [ Multi Tablet] 1 tab PO DAILY 08/30/18 Levothyroxine Sodium [Levothyroxine] 1 tab PO DAILY 04/12/20 Glycerin/[place]itch [place] [Tucks Take-Alongs Wipe] 1 each TP DAILYP PRN #60 med..pad 04/14/20 HPI Reason(s) for Admission: Onset of Labor Procedures: Ultrasound Intrapartum Procedure(s): Spontaneous Vaginal Delivery Hospital Course 59. Maternal Morbidity (serious complications experinced by the mother associated with labor and delivery: None of the above Results Laboratory Results: WBC 9.7 10^3/uL (4.0-10.5) 04/13/20 06:42 RBC 4.22 10^6/uL (3.72-5.28) 04/13/20 06:42 Hgb 12.3 g/dL (12.0-15.5) 04/13/20 06:42 Hct 37.0 % (36.0-47.0) 04/13/20 06:42 MCV 88 fl (80-97) 04/13/20 06:42 MCH 29.2 pg (27.0-33.4) 04/13/20 06:42 MCHC 33.3 g/dL (32.0-36.0) 04/13/20 06:42 RDW 13.9 % (11.5-14.0) 04/13/20 06:42 Plt Count 165 10^3/uL (150-450) 04/13/20 06:42 Urine Color YELLOW 04/12/20 07:34 Urine Appearance CLOUDY 04/12/20 07:34 Urine pH 7.0 (5.0-9.0) 04/12/20 07:34 Ur Specific [place] 1.013 04/12/20 07:34 Urine Protein NEGATIVE mg/dL (NEGATIVE) 04/12/20 07:34 Urine Glucose (UA) NEGATIVE mg/dL (NEGATIVE) 04/12/20 07:34 Urine Ketones TRACE mg/dL (NEGATIVE) H 04/12/20 07:34 Urine Blood LARGE (NEGATIVE) H 04/12/20 07:34 Urine Nitrite NEGATIVE (NEGATIVE) 04/12/20 07:34 Urine Bilirubin NEGATIVE (NEGATIVE) 04/12/20 07:34 Urine Urobilinogen NEGATIVE mg/dL (<2.0) 04/12/20 07:34 Ur Leukocyte Esterase TRACE (NEGATIVE) H 04/12/20 07:34 Urine Ascorbic Acid NEGATIVE (NEGATIVE) 04/12/20 07:34 Urine Opiates Screen NEGATIVE 04/12/20 07:34 Urine Methadone Screen NEGATIVE 04/12/20 07:34 Ur Barbiturates Screen UNCONFIRMED POSITIVE 04/12/20 07:34 Ur Phencyclidine Scrn NEGATIVE 04/12/20 07:34 Ur Amphetamines Screen NEGATIVE 04/12/20 07:34 U Benzodiazepines Scrn NEGATIVE 04/12/20 07:34 Urine Cocaine Screen NEGATIVE 04/12/20 07:34 U Marijuana (THC) Screen NEGATIVE 04/12/20 07:34 RPR NONREACTIVE (NONREACTIVE) 04/12/20 07:28 Blood Type O NEGATIVE 04/13/20 06:42 Antibody Screen NEGATIVE 04/12/20 07:28 Screen NEGATIVE 04/13/20 06:42 Plan Plan of Treatment: d/c home, f/up with [facility] in 4 wks Time Spent: Less than 30 Minutes
[2020-04-14 12:05] VITALS: BP 114/72
[2020-04-14] MEDS: GLYCERIN/WITCH HAZEL LEAF 1 EACH MED..WIPE TP PRN ×2 (14:24→14:25)
== END 2020-04-14 15:24 | disposition home or self-care (01) | DRG 807 ==
LOC: LC 06:09 → LR 06:32 → 2S 14:28
PROVIDERS: ADMIT Obstetrics & Gynecology Gynecology; ATTEND Obstetrics & Gynecology Gynecology
PROC: 10E0XZZ Delivery of Products of Conception, External Approach (ICD-10-PCS; principal; 2020-04-12)
PROC: 0HQ9XZZ Repair Perineum Skin, External Approach (ICD-10-PCS; 2020-04-12)
PROC: 3E0334Z Introduction of Serum, Toxoid and Vaccine into Peripheral Vein, Percutaneous Approach (ICD-10-PCS; 2020-04-12)
PROC: 10907ZC Drainage of Amniotic Fluid, Therapeutic from Products of Conception, Via Natural or Artificial Opening (ICD-10-PCS; 2020-04-12)
DX: O70.0 First degree perineal laceration during delivery (principal); Z37.0 Single live birth; O69.81X0 Labor and delivery complicated by cord around neck, without compression, not applicable or unspecified; Z3A.39 39 weeks gestation of pregnancy; O99.283 Endocrine, nutritional and metabolic diseases complicating pregnancy, third trimester; Z88.8 Allergy status to other drugs, medicaments and biological substances; Z91.018 Allergy to other foods
CPT/HCPCS: 1967; 36415; 80307; 81005; 85027; 85461; 86592; 86850; 86900; 86901; 94760; J2590; J2790; J2795; J3010; J3490; S0119